=== PATIENT | male | born 1985 | race Two or more races ===

== ENCOUNTER 2024-07-03 13:52 | Emergency (ER) | payer MEDICAID, SELFPAY ==
[2024-07-03 13:53] VITALS: BMI 25.8
[2024-07-03 14:21] VITALS: BP 140/89; PULSE 86; RESP 18; TEMP 37.1; O2SAT 99; BMI 25.9
--- NOTE | 2024-07-03 14:51 | XR_ITS ---
Examination: CT abdomen and pelvis without contrast. Coronal 3-D reconstructions. Sagittal 2-D reconstructions. Date and time of exam:July 03, 2024 1516 hrs. Comparison December 06, 2022 Indications: Left-sided flank pain beginning 2 hours ago, history kidney stones CTDI: vol (mGy): 6.26 DLP: (mGycm): 337 Technique: Axial images of the abdomen have been obtained, 3 mm slice thickness Intravenous contrast material has not been administered. Low dose protocols were performed. One or more of the following dose reduction techniques were used; automated exposure control, adjustment of the mA and/or KV according to patient size, use of iterative reconstruction technique. Findings: No focal liver or splenic lesions Contracted gallbladder No pancreatic or adrenal mass Tiny lower pole right renal calculi at least 2 in number measuring 1 mm 1 mm lower pole left renal calculus Mild left hydronephrosis secondary to 2 mm distal left ureteral calculus image 182 No bladder calculi No prostatomegaly Advanced degenerative disc disease L5-S1 Impression: Mild left hydronephrosis secondary to 2 mm distal left ureteral calculus
--- NOTE | 2024-07-03 14:53 | PD.EDRME ---
Rapid Medical Screening Exam RME Arrival date/time: 07/03/24 13:52 This is a 38-year-old male presents to the emergency department with complaints of left flank pain history of nephrolithiasis. I have greeted and performed a focused initial assessment of this patient. Initial appropriate labs ordered at this time. A comprehensive ED assessment and evaluation of the patient and analysis of all test and completion of medical decision making process will be conducted by additional ED provider. Chief Complaint: Abdominal Pain Time Seen by Provider: 07/03/24 14:31 Vital signs: Vital Signs Temperature 98.8 F 07/03/24 14:21 Pulse Rate 86 07/03/24 14:21 Respiratory Rate 18 07/03/24 14:21 Blood Pressure 140/89 H 07/03/24 14:21 Pulse Oximetry (%) 99 07/03/24 14:21 Oxygen Delivery Method Room Air 07/03/24 14:21
[2024-07-03] MEDS: HYDROcodone/APAP 5/325 TABLET 1 TAB PO (15:02)
[2024-07-03] MEDS: KETOROLAC INJ 60 MG/2 ML VIAL IM (15:04)
[2024-07-03 15:11] LABS: Basophils % (Auto) 0 % (0-2.5); Eosinophils # (Auto) 0.1 Thou/mm3 (0.0-0.5); Eosinophils % (Auto) 1 % (0-10); Hematocrit 45.3 % (41.0-53.0); Immature Granulocytes % (Auto) 0 % (0-0); Immature Granulocytes Auto 0.03 Thou/mm3 (0.00-0.00); Lymphocytes % (Auto) 24 % (10-50); Mean Corpuscular HGB Conc 35.3 g/dl (31.0-37.0); Mean Corpuscular Hemoglobin 30.6 pg (25.0-35.0); Mean Corpuscular Volume 87 fL (80-100); Monocytes # (Auto) 0.6 Thou/mm3 (0.0-0.8); Monocytes % (Auto) 7 % (0-12); Neutrophils # (Auto) 5.5 Thou/mm3 (1.8-7.7); Neutrophils % (Auto) 68 % (37-80); Nucleated Red Blood Cell % 0 /100 WBC (0); Platelet Count 237 Thou/mm3 (140-440); RDW Standard Deviation 38.5 fL (35.1-43.9); Red Blood Count 5.23 Miln/mm3 (4.50-5.90); White Blood Count 8.2 Thou/mm3 (3.8-10.6)
[2024-07-03 15:33] LABS: Alanine Aminotransferase 16 U/L (10-49); Albumin, Serum 4.4 gm/dL (3.5-5.0); Albumin/Globulin Ratio 1.5 (1.2-2.2); Alkaline Phosphatase 88 U/L (46-116); Anion Gap 8 (7-16); Aspartate Amino Transferase 27 U/L (0-34); BUN/Creatinine Ratio 20 Ratio (12-20); Bilirubin,Total 0.5 mg/dL (0.3-1.2); Blood Urea Nitrogen 20 mg/dL (9-23); Calcium 9.8 mg/dL (8.3-10.6); Calcium (Corrected) 9.8 mg/dL (8.5-10.1); Carbon Dioxide 27.1 mMol/L (20.0-31.0); Chloride 105 mMol/L (98-107); Estimated Creatinine Clearance 91.8 mL/min (>60); Glucose 141 mg/dL (74-106); Lipase 34 U/L (12-53); Osmolality,Calculated 284 (275-295); Potassium 3.8 mMol/L (3.4-5.1); Sodium 140 mMol/L (136-145); Total Protein 7.4 gm/dL (5.7-8.2); eGFR > 60 See Note
[2024-07-03 16:10] LABS: Collection Type, Urine Clean Catch; Squamous Epithelial Cell,Urine 0 /hpf (0-5)
[2024-07-03 16:46] LABS: Bilirubin,Urine Negative (Negative); Blood,Urine 3+ (Negative); Calcium Oxalate Crystals,Urine 2+; Color,Urine Yellow (Lt Yel-Yel); Glucose, Urine Negative (Negative); Ketones,Urine Negative (Negative); Leukocyte Esterase,Urine Negative (Negative); Nitrite,Urine Negative (Negative); Protein,Urine 1+ (Neg - Trace); RBC,Urine 89 /hpf (0-3); Specific Gravity,Urine 1.034 (1.001-1.035); Urobilinogen,Urine Negative mg/dL (0.0-1.0); WBC,Urine 1 /hpf (0-5)
[2024-07-03 16:52] LABS: Clarity,Urine Hazy (Clear/Hazy)
--- NOTE | 2024-07-03 17:33 | PD.EDABDPN ---
ED Abdominal Pain RME/HPI General Chief Complaint: Abdominal Pain Stated complaint: RU Kidney stones, flank pain left Time seen by provider: 07/03/24 14:31 Arrival date/time: 07/03/24 13:52 This is a 38-year-old male presents to the emergency department with complaints of left flank pain for 1 hour. He does report history of kidney stones approximately 4 years ago. Patient states his symptoms are similar. Patient did not attempt any interventions or take any OTC medications prior to ED visit. Patient denies any other associated symptoms or aggravating factors. No modifying factors, no radiation, no migration. Source: patient RME / HPI RME / HPI narrative: 07/03/24 13:52 This is a 38-year-old male presents to the emergency department with complaints of left flank pain history of nephrolithiasis. I have greeted and performed a focused initial assessment of this patient. Initial appropriate labs ordered at this time. A comprehensive ED assessment and evaluation of the patient and analysis of all test and completion of medical decision making process will be conducted by additional ED provider. Related Data Previous Rx's ?Medication ?Instructions ?Recorded azithromycin 250 mg tablet 2 tab PO QDAY #6 tabs 10/09/13 Hydrocodone/Acetaminophen * (NORCO 1 tab PO Q4H PRN PAIN #20 tabs 02/26/15 5/325 *) ketorolac 10 mg tablet 10 mg PO Q8H #10 tabs 12/06/22 Allergies Allergy/AdvReac Type Severity Reaction Status Date / Time NKA* Allergy Uncoded 12/06/22 09:49 Review of Systems Review of Systems Systems Reviewed: All systems reviewed, normal except as documented Narrative Review of Systems: Gen: No fever, no chills, no weight loss EYES: No discharge, no visual changes, no pain HEENT: No ear pain, no congestion, no sore throat PULM: No shortness of breath, no cough, no congestion CV: No chest pain, no dyspnea on exertion, no palpitations GI: No nausea, no vomiting, no diarrhea, no pain, no constipation : No frequency, no urgency,? no dysuria Musc/skel: No joint pain,+ right back pain Skin: No rash? Psyc: No hallucinations, no depression Heme/Lymph: No easy bleeding or bruising tendencies Neuro: No weakness, no headache ED Exam Narrative Physical exam: General: Sittiing in Exam table in no acute distress, answering questions appropriately HENT: normocephalic, atraumatic, EOMI, PERRLA, moist mucous membranes Chest: chest wall is nontender Cardiac: regular rate and rhythm, normal S1 and S2, no murmurs, rubs, or gallops, capillary refill ?2 seconds Pulmonary: clear to auscultation bilaterally, no wheezing, crackles, or rhonchi Abdominal: active bowel sounds, soft, nontender, nondistended Neuro: A&OX3, CN II-XII intact, sensation grossly intact bilaterally in UE and LE. Skin: no rashes, no ecchymosis Ext: no lower extremity edema Course Quality Measures none Orders Category Date Time Status CT abdomen pelvis wo con Stat Exams 07/03/24 14:51 Completed CBC Stat Lab 07/03/24 15:02 Completed Comprehensive Metabolic Panel Stat Lab 07/03/24 15:02 Completed Lipase Stat Lab 07/03/24 15:02 Completed Urinalysis Stat Lab 07/03/24 15:58 Completed HYDROcodone*/APAP 5/325 [[place] 5/325] Med 07/03/24 14:47 Discontinued 1 tab PO X1 ONE Ketorolac Inj [Toradol Inj] Med 07/03/24 14:47 Discontinued 60 mg IM X1 ONE Vital Signs Vital signs: Vital Signs Temperature 98.8 F 07/03/24 14:21 Pulse Rate 86 07/03/24 14:21 Respiratory Rate 18 07/03/24 14:21 Blood Pressure 140/89 H 07/03/24 14:21 Pulse Oximetry (%) 99 07/03/24 14:21 Oxygen Delivery Method Room Air 07/03/24 14:21 Abdominal Pain MDM MDM Narrative MDM Narrative:: 38-year-old male awake and alert appears to have renal colic. Patient's labs and imaging reassuring. Patient CT does demonstrate a 2 mm renal stone. Mild hydronephrosis. Pain medication given to patient. Patient's symptoms improved.\ Will discharge patient home with close follow-up with PCP and urologist. Patient data External records reviewed:: [facility] previous records Clinical information provided by:: patient Social determinants that could affect healthcare access:: none Patient has the following chronic illnesses:: none How is presenting disease/condition affected by chronic disease/condition?: no chronic disease Evaluation data The following diagnostics were reviewed and interpreted by me:: radiology exam(s) Lab and/or radiology exams considered but not ordered:: none Interpretation Summary: Examination: CT abdomen and pelvis without contrast. Coronal 3-D reconstructions. Sagittal 2-D reconstructions. Date and time of exam:July 03, 2024 1516 hrs. Comparison December 06, 2022 Indications: Left-sided flank pain beginning 2 hours ago, history kidney stones CTDI: vol (mGy): 6.26 DLP: (mGycm): 337 Technique: Axial images of the abdomen have been obtained, 3 mm slice thickness Intravenous contrast material has not been administered. Low dose protocols were performed. One or more of the following dose reduction techniques were used; automated exposure control, adjustment of the mA and/or KV according to patient size, use of iterative reconstruction technique. Findings: No focal liver or splenic lesions Contracted gallbladder No pancreatic or adrenal mass Tiny lower pole right renal calculi at least 2 in number measuring 1 mm 1 mm lower pole left renal calculus Mild left hydronephrosis secondary to 2 mm distal left ureteral calculus image 182 No bladder calculi No prostatomegaly Advanced degenerative disc disease L5-S1 Impression: Mild left hydronephrosis secondary to 2 mm distal left ureteral calculus Medications / Prescriptions Medications or Prescriptions considered but not ordered:: none Medication administrations:: Medication Administration History Discontinued Medications Hydrocodone Bitart/Acetaminophen (Hydrocodone/Apap 5/325 Tablet) 1 tab PO X1 ONE Stop: 07/03/24 14:48 Last Admin: 07/03/24 15:02 Dose: 1 tab Documented By: Ketorolac Tromethamine (Ketorolac Inj 60 Mg/2 Ml Vial) 60 mg IM X1 ONE Stop: 07/03/24 14:48 Last Admin: 07/03/24 15:04 Dose: 60 mg Documented By: All medications administered and effective Consultations Consultation(s) initiated? (list below): No Diagnosis Differential diagnosis abdominal pain: abdominal pain and other Most likely diagnosis given after review of the tests above:: Kidney stone Admission Indicated Admission indicated?: not indicated Admission Request Was there a request for admission?: No Disposition Plan Disposition Plan: Discharge Discharge Attestation Discharge Attestation: The patient and all family members were given an opportunity to ask questions and understood the discharge instructions. Discharge instructions specifically effects, indications for sooner follow up or return to the emergency department, and the expected course of current diagnosis. Patient condition: Stable Discharge Plan Plan Patient Disposition: HOME (Self Care) Patient condition on transfer: Stable Prescriptions/Referrals Prescriptions/Med Rec: No Action azithromycin 250 MG tablet 2 tab PO QDAY Qty: 6 0RF Hydrocodone/Acetaminophen * (NORCO 5/325 *) 1 TAB tablet 1 tab PO Q4H PRN (Reason: PAIN) Qty: 20 0RF ketorolac 10 mg tablet 10 mg PO Q8H Qty: 10 0RF Problem List Clinical Impression: Kidney stone Patient/Caregiver Discharge Instructions Discharge Activity: activity as tolerated Education Materials: ED Kidney Stone w/ Colic Additional Instructions: Please follow-up with your primary doctor clinic for follow-up care. You might need to see a urologist due to kidney stones. Medication was sent that you will take for 5 days. To the emergency department this any worsening symptoms or change in condition. Print Language: [place] Stand Alone Forms: Jasmyn Award Info., Patient Portal Info Letter ALIDA/MRAIA GUADALUPE Supervising Physician ALIDA/MARIA GUADALUPE Supervising Physician: Dr Castaneda
== END 2024-07-03 17:10 | disposition home or self-care (01) ==
PROVIDERS: Nurse Practitioner Primary Care; Emergency Provider Emergency Medicine
DX: N13.2 Hydronephrosis with renal and ureteral calculous obstruction (principal); M51.379 Other intervertebral disc degeneration, lumbosacral region without mention of lumbar back pain or lower extremity pain; Z87.442 Personal history of urinary calculi
CPT/HCPCS: 36415; 74176; 80053; 81001; 83690; 85025; 96372; 99284; J1885; A9270